=== PATIENT | male | born 1960 | race Caucasian/White ===

== ENCOUNTER 2024-01-07 13:25 | Outpatient (REF) | payer OTHER, SELFPAY ==
--- NOTE | ~2024-01-07 | US_ITS ---
EXAMINATION: US THYROID CLINICAL INFORMATION: Nontoxic multinodular goiter. COMPARISON: None available. TECHNIQUE: Linear transducer grayscale and color Doppler examination with attention to the region of the thyroid. FINDINGS: SIZE: Measurements of the thyroid lobes and nodules are given in sagittal, anteroposterior and transverse dimensions respectively. Right Thyroid Lobe: 4.4 x 2 x 2 cm, volume 8 mL. Parenchyma: The gland echotexture is homogeneous. Thyroid vascularity is normal. Left Thyroid Lobe: 4.3 x 1.7 x 1.3 cm, volume 5 mL. Parenchyma: The gland echotexture is homogeneous. Thyroid vascularity is normal. Isthmus: 0.4 cm in maximum AP dimension. Estimated total number of nodules greater than or equal to 1 cm: 2. Meat Pickler nodules are described as follows: 1. Location: Right inferior. Size: 1.8 x 1.7 x 1.5 cm, volume 2.3 mL. Nodule characteristics: Composition: Solid (2). Echogenicity: Hypoechoic (2). Shape: Not taller than wide (0). Margins: Smooth (0). Echogenic Foci: None (0). ACR TI-RADS total points: 4 ACR TI-RADS category: 4 2. Location: Right mid. Size: 1.4 x 1.1 x 0.8 cm, volume 0.7 mL. Nodule characteristics: Composition: Solid (2). Echogenicity: Isoechoic (1). Shape: Taller than wide (3). Margins: Smooth (0). Echogenic Foci: None (0). ACR TI-RADS total points: 6 ACR TI-RADS category: 4 NODES: No lymphadenopathy is seen in the tissue surrounding the thyroid gland. US/US thyroid IMPRESSION: A 1.8 cm TR for right inferior thyroid nodule meets criteria for tissue sampling. A 1.4 cm TR for right mid thyroid nodule meets criteria for follow-up ultrasound in one year and subsequently as detailed below. ACR TI-RADS RECOMMENDATION REFERENCE: Ultrasound-guided fine-needle aspiration, followup ultrasound, no further follow up. * TR1 (0 point) and TR2 (2 points): No FNA or follow up. * TR3 (3 points): FNA if more than or equal to 2.5 cm in maximum dimension, followup ultrasound in 1, 3 and 5 years if 1.5 to 2.4 cm in maximum dimension. * TR4 (4-6 points): FNA if more than or equal to 1.5 cm in maximum dimension, followup ultrasound in 1, 2, 3 and 5 years if 1 to 1.4 cm in maximum dimension. * TR5 (more than or equal to 7 points): FNA if more than or equal to 1 cm in maximum dimension, followup ultrasound every year for 5 years if 0.5 to 0.9 cm in maximum dimension. * TR3, TR4 or TR5 nodules that are below the size threshold for followup receive no follow up.
== END 2024-01-07 13:26 | disposition home or self-care (01) ==
LOC: HO.US 13:25
PROVIDERS: PCP Nurse Practitioner Family; Visit Provider Nurse Practitioner Family
DX: E04.2 Nontoxic multinodular goiter (principal)
CPT/HCPCS: 76536

== ENCOUNTER 2025-07-10 16:41 | Emergency (ER) | payer BC, SELFPAY ==
--- NOTE | ~2025-07-10 | CT_ITS ---
CLINICAL HISTORY: chest pain CT angiography chest with contrast. 3D Postprocessing. Comparison: Chest x-ray 07/10/2025 Findings: No dense focal airspace consolidation. Suggestion of mild diffuse parenchymal ground-glass attenuation. Mild bibasilar subsegmental atelectatic changes. Central airways are patent. Normal heart size. No pericardial effusion. No significant coronary artery calcifications. Mildly calcified but nonaneurysmal thoracic aorta. No evidence of acute pulmonary embolism. Central pulmonary arteries are normal caliber. No pathologically enlarged lymph nodes. Unremarkable esophagus. No acute findings within visualized lower neck. Abdominal findings are described in a separate accompanying report. No acute osseous abnormality. No lytic or sclerotic osseous lesions. Scattered nodules throughout the thyroid. Impression: 1. No acute pulmonary embolism. 2. No thoracic aortic dissection. 3. Suggestion of subtle diffuse parenchymal ground-glass attenuation, nonspecific may represent atelectasis however mild edema or pneumonitis could have similar appearance in the appropriate clinical setting. 4. Multiple thyroid nodules, ultrasound may be considered for further evaluation. 5. Additional findings as above. This document has been electronically signed by: Prem Hernández MD on 07/10/2025 21:50:23
--- NOTE | ~2025-07-10 | XR_ITS ---
CLINICAL HISTORY: chest pain Two views of the chest. COMPARISON: None provided. FINDINGS: Normal heart and mediastinal contours. No consolidation. No pleural effusion or pneumothorax. No acute fracture. IMPRESSION: 1. No consolidation. This document has been electronically signed by: Bakari Holland MD on 07/10/2025 17:18:21
--- NOTE | ~2025-07-10 | US_ITS ---
CLINICAL HISTORY: abd pain, abnormal bili and LFTs, jaundice --- Additional Notes or Special Instructions: GB and CBD US abdomen limited Comparison: CT abdomen and pelvis 07/10/2025 Findings: Liver demonstrates relatively normal and homogeneous echogenicity. Antegrade hepatopetal portal vein flow. Scattered cysts throughout the liver up to 2.9 cm in size with some being circumferential calcified. Cholecystectomy. Common bile duct measures 3 mm. No definite intrahepatic ductal dilation. Impression: 1. Cholecystectomy. 2. Scattered partially calcified cysts throughout the liver. Further evaluation with multiphase MRI or CT may be considered if clinically appropriate. 3. Additional findings as above. This document has been electronically signed by: Prem Hernández MD on 07/10/2025 23:30:02
--- NOTE | ~2025-07-10 | CT_ITS ---
CLINICAL HISTORY: bloating, abnormal LFTs and bili, pain CT abdomen and pelvis with contrast Comparison: None provided Findings: No acute findings within visualized lung bases. Numerous scattered low-attenuation foci throughout the liver measuring up to 2.9 cm on the right and 2.2 cm on the left. Liver otherwise enhances homogeneously. Cholecystectomy. Adrenal glands, and pancreas are unremarkable. Atrophic appearance of the left kidney with scattered cortical based and peripelvic renal cysts and few tiny nonobstructing calculi. Right kidney enhances homogeneously. Moderate circumferential bladder wall thickening. Enlarged prostate. Calcified but nonaneurysmal abdominal aorta and iliofemoral vessels. Nondistended stomach. Normal caliber small bowel. No obstruction. Colonic diverticulosis without CT evidence of acute diverticulitis. Normal appendix. No pathologically enlarged lymph nodes. No acute osseous abnormality. No lytic or sclerotic osseous lesions. Impression: 1. No acute findings identified in the abdomen or pelvis. 2. Cholecystectomy. 3. Scattered low-attenuation foci throughout the liver up to 2.9 cm in size. These favored to represent simple hepatic cysts or hemangiomas. Given the provided clinical history however further evaluation with multiphase CT or MRI may be considered. 4. Enlarged prostate. Consider correlation with PSA. 5. Circumferential bladder wall thickening, could be cystitis versus muscle hypertrophy in the setting of chronic bladder outlet obstruction. 6. Atrophic appearance of the left kidney. 7. Additional findings as above. This document has been electronically signed by: Prem Hernández MD on 07/10/2025 21:40:53
--- NOTE | 2025-07-10 16:43 | ECG_ITS ---
Test Reason : CHEST HDZ Blood Pressure : */* mmHG Vent. Rate : 74 BPM Atrial Rate : 74 BPM P-R Int : 154 ms QRS Dur : 94 ms QT Int : 388 ms P-R-T Axes : 35 23 14 degrees QTcB Int : 430 ms Normal sinus rhythm Normal ECG No previous ECGs available Referred By: Mily Tatum Electronically Signed By: Harjit Santizo
[2025-07-10 16:55] VITALS: BP 197/100; PULSE 79; RESP 18; TEMP 36.7; O2SAT 97; BMI 28.9
--- NOTE | 2025-07-10 16:55 | ED.GENADULT ---
HPI - General Adult General Chief complaint: Chest Pain Stated complaint: cp, difficulty breating, vomiting, dizziness Time Seen by Provider: 07/10/25 19:25 Source: patient, family and old records reviewed Mode of arrival: ambulatory Limitations: other (very poor historian) History of Present Illness ED Provider: [facility] narrative: 64 yo male with PMH of afib not on dilt but takes eliquis, he has HTN on amlodipine/benazepril/HCTZ but only takes it when his BP is > 140 if he takes it prior to that he states he gets tired and his BP drops to 80s. He has been dealing with feelings of bloat and that something is not right in his stomach. This has been going on for weeks. He denies fevers, vomiting, diarrhea. He has a remote hx of cholecystectomy and splenectomy he admits to not getting his pneumonia vaccine. He seems to be somewhat loose with his medications but he does admit that he is compliant with his eliquis. He notes some yellow eyes. He denies ETOH use. He notes no weight loss. He admit so to taking his meds when he feels he needs them other than eliquis and his doctor states it is okay. He reports he feels short of breath sometimes. He has had sharp intermittent L sided chest pain that is not related to exertion it comes and goes. He is very anxious and talking very fast. He states he just doesn't feel right and has felt this way not just today but for some weeks. He has woken up in sweats. MD complaint: chest pains, bloating, yellow eyes Onset (ago): week(s) Location: chest and abdomen Radiation: non-radiation Severity: moderate Quality: other (sharp intermittent and then states abdomen doesn't feel right ) Pain Consistency: intermittent Relieving factors: none Exacerbating factors: none Associated symptoms: malaise, shortness of breath and weakness Treatments prior to arrival: none Related Data Allergies Allergy/AdvReac Type Severity Reaction Status Date / Time No Known Allergies Allergy Verified 07/10/25 16:58 Review of Systems Review of Systems: Constitutional : No Weight loss, No Fever, No Chills, pos sweats ENT/Mouth : No sore throat, No Rhinorrhea Eyes: No Eye Pain, No Swelling Cardiovascular : pos Chest Pain, pos SOB, no Dyspnea on Exertion, No Orthopnea, No Edema, No Palpitations Respiratory : No Cough, No Sputum Gastrointestinal : pos Nausea, No Vomiting, No Diarrhea, pos abdominal Pain, No Hematochezia, No Melena Genitourinary : No Dysuria, No Urinary Frequency Musculoskeletal : No joint pain, No Myalgias, No Joint Swelling Skin : No Skin Lesions, No rash Neuro : pos Weakness, No Numbness, No Dizziness, No Headache All other systems reviewed and are negative PMFSH Past Medical History Attestation statement: The following information was validated with the patient. Source: old records reviewed Medical History Afib HTN (hypertension) Surgical History S/P cholecystectomy H/O splenectomy Social History Social History Smoked in Last 30 Days: No Use of substances other than those prescribed or required for medical reasons: No Advance Directives: No Advance Directives Information Provided: No Physical Exam ED Vital Signs: Vital Signs - 24 hr 07/10/25 16:55 07/10/25 19:21 07/10/25 21:08 Temperature 98.0 F 98.0 F Pulse Rate 79 65 67 Respiratory Rate 18 14 12 Blood Pressure 197/100 H 201/95 H 155/91 H Pulse Oximetry 97 98 96 Oxygen Delivery Method Room Air Room Air Room Air BMI result Body Mass Index 28.9 Appearance: Alert. Oriented X3. No acute distress. Eyes: Pupils equal, round and reactive to light. scleral icterus ENT: Pharynx normal. Neck: Normal inspection. Neck supple. CVS: Normal heart rate and rhythm. Pulses normal. Respiratory: No respiratory distress. Breath sounds normal. Abdomen: Soft and some mild discomfort of the upper abdomen but no rebound or guarding Skin: Skin warm and dry. Normal skin color. Normal skin turgor. Extremities: No lower extremity edema. No calf ttp distal pulses intact Neuro: Oriented X 3. No motor deficit. No sensory deficit. Course Course Course Narrative: This is a rapid medical exam performed by Hyacinth Tatum NP: Additional HPI, ROS, PE not included below will be deferred to primary provider. Patient is a 64-y/o M with hx DE, CVA presenting with complaint of chest pain since this am. Associated nausea, bloating, dizziness, eyes look yellow, dyspnea. BP in triage 197/100, took his BP med [employer]. Plan: EKG, CXR, labs Reevaluation(s) Reevaluation #1: 813pm family and patient are demanding a CT chest they will not discuss that EKG, troponin, CXR and ddimer are negative along with eliquis use the daughter states she is an ED RN in [place] and she is demanding he get the CTA. I do not feel it is indicated but they are demanding it be done despite me stating it is not clinically indicated. I feel this is likely related to a GI issue given his LFTs and bili but it appears there is no discussion at this time other than getting a CTA. Reevaluation #2: BP coming down appropriately Reevaluation #3: REVIEW OF [facility] RECORDS SHOW PRIOR T BILI 2.4 AND INDIRECT 1.9 ALONG WITH AST 56 AND ALT 47 BACK IN FEBRUARY 2025 Medications Administered Discontinued Medications Generic Name Dose Route Start Last Admin Trade Name Mandeepq PRN Reason Stop Dose Admin Iohexol 100 ml 07/10/25 20:38 07/10/25 20:38 Iohexol 350 Mg/Ml 100 Ml Infus..Btl IV 07/10/25 20:39 85 ml ONCE ONE Administration Medical Decision Making Medical Decision Making MDM Narrative: 64 yo male with PMH of afib not on dilt but takes eliquis, he has HTN on amlodipine/benazepril/HCTZ but only takes it when his BP is > 140 I did get records from [facility] he is also on plavix due to prior stroke. He has many complaints that it doesn't seem able to pint point including not feeling well, bloating atypical sharp chest pains that come and go at any time but no cough or sputum no fevers does feel winded at times. He states he noted his eyes were yellow as well. He states his abdomen feels big at this time will obtain trop, ddimer, EKG, CXR, CT scan of abdomen for obstructive lesion or pathology. Differential Diagnosis Differential Diagnoses: The differential diagnosis associated with the presentation includes pancreatic mass, non compliance, retained stone, biliary mass, atypical for ACS and EKG nonischemic with neg trop it seems more GI, low susp for VTE given eliquis use and ddimer negative Admission/Observation Consideration of admission/observation: Escalation of care including admission/observation considered trop flat x 2, BP down taking his nigt meds, no VTE/dissection/effusion possible mild pneumonitis CT scan abdomen need a dedicated MRI of liver Lab Data MDM Lab Attestation statement: I reviewed the patient's lab results. 07/10/25 17:15 07/10/25 17:15 Labs: Lab Results 07/10/25 07/10/25 Range/Units 17:15 19:44 WBC 6.3 (4.8-10.8) X10*3/uL RBC 5.10 (4.60-5.80) X10*6/uL Hgb 15.8 (14.0-18.0) g/dl Hct 43.0 (42.0-52.0) % MCV 84.3 (80.0-98.0) fL MCH 31.0 (27.0-33.0) pg MCHC 36.7 H (31.0-36.0) g/dl RDW 11.6 (11.0-16.0) % Plt Count 387 (160-400) X10*3/uL MPV 10.1 (9.4-12.4) fL Immature Gran % (Auto) 0.0 (0.0-0.4) % Neut % (Auto) 11.5 L (45-73) % Lymph % (Auto) 67.9 H (20-40) % [place] % (Auto) 15.2 H (2-11) % Eos % (Auto) 4.0 (0-4) % Baso % (Auto) 1.4 (0-2) % Lymph # (Auto) 4.3 (1.2-4.9) X10*3/uL [place] # (Auto) 1.0 (0.1-1.2) X10*3/uL Eos # (Auto) 0.3 (0.0-0.4) X10*3/uL Baso # (Auto) 0.1 (0.0-0.2) X10*3/uL Abs Immat Gran (auto) 0.00 (0.00-0.03) X10*3/uL Absolute Neuts (auto) 0.7 L (2.0-8.3) x10*3/uL Absolute Nucleated RBC 0.000 (0.0-0.012) X10*3/uL Nucleated RBC % (auto) 0.0 (0.0-0.2) /100WBC Smear Tech's Comments VERIFIED PT 15.9 H (10.9-12.4) SEC INR 1.4 H (0.9-1.1) D-Dimer High Sensitivty < 150 NG/ML Sodium 139 (135-145) mmol/L Potassium 3.8 (3.3-5.1) mmol/L Chloride 108 (96-108) mmol/L Carbon Dioxide 22 (22-29) mmol/L Anion Gap 13 (12-20) BUN 19 H (9-16) mg/dL Creatinine 1.15 (0.5-1.4) mg/dL Estim Creat Clear Calc 64.1 Estimated GFR > 60 Random Glucose 119 H (60-115) mg/dL Calcium 9.4 (8.4-10.2) mg/dL Magnesium 2.1 (1.6-2.6) mg/dL Total Bilirubin 3.9 H (0.0-1.0) mg/dL AST 54 H (5-37) U/L ALT 47 H (0-40) U/L Alkaline Phosphatase 85 (39-117) U/L Troponin I High Sens < 2.7 < 2.7 (<3.5-35.0) ng/L B-Natriuretic Peptide 29 (<100) pg/mL Total Protein 7.6 (6.5-8.0) g/dL Albumin 4.3 (3.5-5.0) g/dL Lipase 39 (8-78) U/L Independent Interpretation I performed an independent interpretation of an: EKG, Plain X-Ray (normal ) and CT Scan Interpretation: Rate: 74 Rhythm: NSR [place]: normal Normal P waves. Normal FLAVIA. Normal QRS complex. ST T wave : no HANSEL, inverted t wave III, inverted t waves V1 qTC: 430 prior studies: no acute ischemia The study has been interpreted contemporaneously by me. Radiology Impression Discussion of test interpretation with radiology: I have reviewed the radiologist's reading. Independent Historian Clinical information obtained from an independent historian. History obtained from or confirmed by: Other External Record Review External record reviewed: Outpatient record Discharge Plan Discharge Clinical Impression: Atypical chest pain, Hyperbilirubinemia Patient Disposition: Home, Self-Care Instructions: Chest Pain (ED) Additional Instructions: CT scan of chest no blood clot, no aneurysm, no pneumonia there are incidental thyroid nodules you will need outpatient ultrasound with your primary care doctor CT scan abdomen no acute findings but incidental findings that need follow up with family doctor for MRI of liver including liver cysts your liver enzymes are abnormal but review of [facility] records show this is not new you have hx of elevated bilirubin please call your doctor and follow up next week for further work up including labs, US, MRI of liver return for any worsening symptoms or concerns, continue to take all of your medications as prescribed EKG and repeat tests for damage to the heart were normal. Impression: 1. Cholecystectomy. 2. Scattered partially calcified cysts throughout the liver. Further evaluation with multiphase MRI or CT may be considered if clinically appropriate. 3. Additional findings as above. Referrals: [facility] [place] [facility] [Provider Group, Gastroenterology] Referral Note: call to schedule abnormal US and chronically abnormal LFTs Print Language: Icelandic
[2025-07-10 17:24] LABS: Hematocrit 43.0 % (42.0-52.0); Hemoglobin 15.8 g/dl (14.0-18.0); Imm Gran Abs Auto 0.00 X10*3/uL (0.00-0.03); Imm Gran Pct Auto 0.0 % (0.0-0.4); Lymphocytes Absolute Auto 4.3 X10*3/uL (1.2-4.9); MANUAL DIFF FLAG SCAN; Mean Corpuscular HGB Conc 36.7 g/dl (31.0-36.0); Mean Corpuscular Hemoglobin 31.0 pg (27.0-33.0); Mean Corpuscular Volume 84.3 fL (80.0-98.0); NRBC Abs Auto 0.000 X10*3/uL (0.0-0.012); NRBC Pct Auto 0.0 /100WBC (0.0-0.2); Platelet Count 387 X10*3/uL (160-400); Red Blood Count 5.10 X10*6/uL (4.60-5.80); SCAN SMEAR FLAG 1; White Blood Count 6.3 X10*3/uL (4.8-10.8)
[2025-07-10 17:30] LABS: INTERNATIONAL NORM RATIO 1.4 (0.9-1.1); Prothrombin Time 15.9 SEC (10.9-12.4)
[2025-07-10 17:42] LABS: Alanine Aminotransferase 47 U/L (0-40); Albumin Level 4.3 g/dL (3.5-5.0); Alkaline Phosphatase 85 U/L (39-117); Anion Gap 13 (12-20); Aspartate Amino Transferase 54 U/L (5-37); Blood Urea Nitrogen 19 mg/dL (9-16); Calcium 9.4 mg/dL (8.4-10.2); Carbon Dioxide 22 mmol/L (22-29); Chloride 108 mmol/L (96-108); Creatinine Clr Calc Pharmacy 64.1; Estimated Glomerular Filt Rate > 60; Lipase 39 U/L (8-78); Magnesium 2.1 mg/dL (1.6-2.6); Potassium 3.8 mmol/L (3.3-5.1); Sodium 139 mmol/L (135-145); Total Protein 7.6 g/dL (6.5-8.0)
[2025-07-10 17:45] LABS: B Type Natriuretic Peptide 29 pg/mL (<100)
[2025-07-10 17:51] LABS: Troponin-I High Sensitivity < 2.7 ng/L (<3.5-35.0)
[2025-07-10 19:21] VITALS: BP 201/95; PULSE 65; RESP 14; O2SAT 98
[2025-07-10 20:10] LABS: Troponin-I High Sensitivity < 2.7 ng/L (<3.5-35.0)
[2025-07-10 20:11] LABS: D Dimer High Sensitivity < 150 NG/ML
[2025-07-10] MEDS: iohexoL 350 MG/ML 100 ML INFUS..BTL IV (20:38)
[2025-07-10 21:08] VITALS: BP 155/91; PULSE 67; RESP 12; TEMP 36.7; O2SAT 96
--- NOTE | 2025-07-10 21:11 | PC.NURSE ---
Brought in pain and nausea medication to patient as ordered. Visitor of patient questioned why he was getting pain medication and this RN explained that it is for the chest pain he came into the ED for. Visitor talked with patient and they both decided he did not need either medication at this time.
[2025-07-10 23:46] VITALS: BP 164/96; PULSE 68; RESP 12; TEMP 36.7; O2SAT 96
[2025-07-11 00:02] VITALS: BP 164/96; PULSE 68; RESP 12; TEMP 36.7; O2SAT 96
== END 2025-07-11 | disposition home or self-care (01) ==
PROVIDERS: Registered Nurse Emergency; Emergency Provider Emergency Medicine
DX: R07.89 Other chest pain (principal); E80.6 Other disorders of bilirubin metabolism; I48.91 Unspecified atrial fibrillation; Z79.01 Long term (current) use of anticoagulants; I10 Essential (primary) hypertension; F41.9 Anxiety disorder, unspecified
CPT/HCPCS: 36415; 71046; 71275; 74177; 76705; 80053; 83690; 83735; 83880; 84484; 85025; 85379; 85610; 93005; 99285; J2270; J2405; Q9967

== ENCOUNTER → 2025-07-10 16:43 | Outpatient (BNV) | payer BC, SELFPAY | PROVIDERS: Emergency Provider Emergency Medicine; Visit Provider Internal Medicine Cardiovascular Disease | DX: R07.89 Other chest pain (principal) | CPT/HCPCS: 93010 ==

== ENCOUNTER → 2025-07-10 16:57 | Outpatient (BNV) | payer BC, SELFPAY | PROVIDERS: Visit Provider Radiology Diagnostic Radiology | DX: R93.2 Abnormal findings on diagnostic imaging of liver and biliary tract (principal); J98.11 Atelectasis; R07.9 Chest pain, unspecified | CPT/HCPCS: 71046; 71275; 74177; 76705 ==